=== PATIENT | female | born 1955 | race Caucasian/White ===

== ENCOUNTER 2017-05-08 09:50 | Emergency (ER) | payer OTHER ==
[2017-05-08 09:57] VITALS: RESP 16; TEMP 98.2
--- NOTE | 2017-05-08 10:23 | EDPHY ---
HPI/HX/ROS/PE/MDM Narrative: CHIEF COMPLAINT: Abdominal pain HPI: This patient is a 61-year-old female who presents to the Emergency Department complaining of an acute exacerbation of chronic intermittent right- upper-quadrant abdominal pain. She describes the pain as achy and waxing and waning with radiation to her mid right thoracic back. It is not exacerbated by eating. She denies any associated complaints; no nausea, vomiting, hemoptysis, or shortness of breath. She has a history of pyelonephritis but describes this pain as different in localization and quality. No history of cholecystitis or cholecystectomy. REVIEW OF SYSTEMS: Aside from elements discussed in the HPI, a comprehensive 10-point review of systems was reviewed and is negative. PMH: Thyroid disease (Synthroid) SOCIAL HISTORY: Adopted; limited familial history. Works as a software release manager. PHYSICAL EXAM: General:Patient is alert, in no acute distress. ENT:Eyes are normal to inspection. ENT inspection normal. Neck: Normal inspection. Full range of motion. Respiratory:No respiratory distress. Breath sounds normal bilaterally. Cardiovascular: Regular rate and rhythm. Strong peripheral pulses. Normal cap refill. Abdomen:The abdomen is nontender to palpation. There are no peritoneal signs. There are normal bowel sounds. Back: Normal to inspection. Mild RUQ tenderness. Skin: Normal color. No rash. Warm and dry. Extremities: Normal appearance. Full range of motion. Neuro: Oriented x3. Normal motor function. Normal sensory function. ED Course: 61-year-old female complains of ongoing intermittent RUQ abdominal pain with acute exacerbation over the past two days. She has no cardiac or respiratory complaints; no chest pain, diaphoresis, or hemoptysis. She has mild RUQ tenderness on exam but no additional findings. While she does not associate her pain with eating, it is suspicious for cholecystitis given waxing and waning nature as well as radiation to the mid-back. Will proceed with labs, including LFTs, and US of the abdomen. Chest x-ray reviewed by me and is negative for acute process. Labs reviewed. Troponin is negative. D-dimer is negative. EKG was ordered and interpreted by myself; reveals sinus tachycardia rate 112. Please see [facility] system for official reading. 1220: US of the abdomen is negative per Dr. Lloyd. 1245: Vitals obtained; the patient remains tachycardic with HR of 107. The patient's workup thus far has not provided an underlying explanation for her ongoing abdominal pain as well as her persistent tachycardia. I offered her admission for continued evaluation; however, she declines this. She will be discharged home at this time. She understands that she should call tomorrow for TSH values and follow-up without fail with her PCP in the next 1-2 days. She is given strict return precautions prior to discharge. MDM: This patient presents with isolated pain to her RUQ abdomen. We performed an extensive workup including negative CXR, negative LFTs and lipase, and negative US of the RUQ, so I think PNA, cholecysitis, cholelithiasis, hepatitis and pancreatitis are all unlikely. Interestingly, the patient arrived mildly tachycardic and remained so over the course of her ED stay. She is afebrile and ECG shows sinus tach with no evidence of ischemia. The finding also prompted troponin and d-dimer, which are thanfully negative. Given history of synthroid use and lack of other clear etiology of tachycardia, I think it is possible that patient may be on too high of a dose of synthroid. I have sent a TSH but patient understands she needs to follow-up on this test with her PCP. We discussed strict return precautions. - Data Points Imaging Results: Imaging Impressions Abdomen Ultrasound 05/08/17 10:40 Impression: Normal. No cholelithiasis, biliary dilation, hydronephrosis or free fluid. Comment: A message was left for Dr. Choudhury at the ER desk regarding the negative results at 12:20 PM. Chest X-Ray 05/08/17 10:40 Impression: Clear lungs. No acute process. Laboratory Results: Laboratory Results 05/08/17 10:07 05/08/17 10:40 05/08/17 05/08/17 05/08/17 10:40 10:40 10:40 WBC RBC Hgb Hct MCV MCH MCHC RDW Plt Count MPV Neut % (Auto) Lymph % (Auto) [place] % (Auto) Eos % (Auto) Baso % (Auto) Nucleat RBC Rel Count Absolute Neuts (auto) Absolute Lymphs (auto) Absolute Monos (auto) Absolute Eos (auto) Absolute Basos (auto) Absolute Nucleated RBC Immature Gran % Immature Gran # D-Dimer 0.32 ug/mLFEU ug/mLFEU (0.00-0.50) Sodium Potassium Chloride Carbon Dioxide Anion Gap BUN Creatinine Estimated GFR Glucose Calcium Total Bilirubin Conjugated Bilirubin Unconjugated Bilirubin AST ALT Alkaline Phosphatase Troponin I < 0.012 ng/mL ng/mL (0-0.034) Total Protein Albumin Lipase TSH Pending 05/08/17 05/08/17 10:40 10:07 WBC 4.21 10^3/uL 10^3/uL (3.80-9.50) RBC 5.03 10^6/uL 10^6/uL (4.18-5.33) Hgb 15.6 g/dL g/dL (12.6-16.3) Hct 44.9 % % (38.0-47.0) MCV 89.3 fL fL (81.5-99.8) MCH 31.0 pg pg (27.9-34.1) MCHC 34.7 g/dL g/dL (32.4-36.7) RDW 14.2 % % (11.5-15.2) Plt Count 242 10^3/uL 10^3/uL (150-400) MPV 10.8 fL fL (8.7-11.7) Neut % (Auto) 59.7 % % (39.3-74.2) Lymph % (Auto) 31.1 % % (15.0-45.0) [place] % (Auto) 7.8 % % (4.5-13.0) Eos % (Auto) 0.7 % % (0.6-7.6) Baso % (Auto) 0.5 % % (0.3-1.7) Nucleat RBC Rel Count 0.0 % % (0.0-0.2) Absolute Neuts (auto) 2.51 10^3/uL 10^3/uL (1.70-6.50) Absolute Lymphs (auto) 1.31 10^3/uL 10^3/uL (1.00-3.00) Absolute Monos (auto) 0.33 10^3/uL 10^3/uL (0.30-0.80) Absolute Eos (auto) 0.03 10^3/uL 10^3/uL (0.03-0.40) Absolute Basos (auto) 0.02 10^3/uL 10^3/uL (0.02-0.10) Absolute Nucleated RBC 0.00 10^3/uL 10^3/uL (0-0.01) Immature Gran % 0.2 % % (0.0-1.1) Immature Gran # 0.01 10^3/uL 10^3/uL (0.00-0.10) D-Dimer Sodium 144 mEq/L mEq/L (134-144) Potassium 4.4 mEq/L mEq/L (3.5-5.2) Chloride 105 mEq/L mEq/L (97-110) Carbon Dioxide 23 mEq/l mEq/l (22-31) Anion Gap 16 mEq/L mEq/L (8-16) BUN 20 mg/dL mg/dL (7-23) Creatinine 0.7 mg/dL mg/dL (0.6-1.0) Estimated GFR > 60 Glucose 105 mg/dL H mg/dL (70-100) Calcium 10.5 mg/dL H mg/dL (8.5-10.4) Total Bilirubin 0.7 mg/dL mg/dL (0.1-1.4) Conjugated Bilirubin 0.2 mg/dL mg/dL (0.0-0.5) Unconjugated Bilirubin 0.5 mg/dL mg/dL (0.0-1.1) AST 38 IU/L IU/L (14-46) ALT 40 IU/L IU/L (9-52) Alkaline Phosphatase 69 IU/L IU/L (38-126) Troponin I Total Protein 8.4 g/dL H g/dL (6.3-8.2) Albumin 5.1 g/dL H g/dL (3.5-5.0) Lipase 86.0 IU/L IU/L (23-300) TSH General Time Seen by Provider: 05/08/17 10:17 Initial Vital Signs: Initial Vital Signs Temperature (C) 36.8 C 05/08/17 09:53 Heart Rate 116 H 05/08/17 09:53 Respiratory Rate 16 05/08/17 09:53 Blood Pressure 135/99 H 05/08/17 09:53 O2 Sat (%) 95 05/08/17 09:53 O2 Delivery Mode Room Air Allergies/Adverse Reactions: Sulfa (Sulfonamide Antibiotics) [Sulfa(Sulfonamide Antibiotics)] Allergy (Severe , Verified 07/07/12 03:30) amoxicillin [Amoxicillin] Allergy (Verified 07/07/12 03:30) Penicillins Allergy (Verified 07/07/12 03:30) Home Medications: Medication Instructions Recorded Levothyroxine [Synthroid 75 mcg 75 mcg PO DAILY06 04/19/12 (RX)] Departure - Departure Disposition: Home, Routine, Self-Care Clinical Impression: Tachycardia Abdominal pain Qualifiers: Abdominal location: right upper quadrant Qualified Code(s): R10.11 - Right upper quadrant pain Condition: Good Instructions: Abdominal Pain (ED), Tachycardia (ED) Additional Instructions: 1. Follow-up with your primary care provider within the next 48 hours without fail. 2. Return to the Emergency Department immediately with severe pain, heart palpitations, chest pain, shortness of breath, uncontrollable nausea or vomiting , or for others serious concerns. Referrals: Catherine Delcid MD [Primary Care Provider] - As per Instructions Report Scribed for: Charles Choudhury Report Scribed by: Fatou Perdomo Date of Report: 05/08/17 Time of Report: 10:23 Physician Review and Approval Statement: Portions of this note were transcribed by an ED scribe. I personally performed the history, physical exam, and medical decision making; and confirm the accuracy of the information in the transcribed note.
[2017-05-08 10:45] LABS: % IMMATURE GRANULYOCYTES 0.2 % (0.0-1.1); ABSOLUTE IMMATURE GRANULOCYTES 0.01 10^3/uL (0.00-0.10); ADD DIFF? NO; ADD MORPH? NO; ADD SCAN? NO; ATYPICAL LYMPHOCYTE FLAG 10 (0-99); FRAGMENT RBC FLAG 0 (0-99); HEMATOCRIT 44.9 % (38.0-47.0); HEMOGLOBIN 15.6 g/dL (12.6-16.3); LEFT SHIFT FLG 0 (0-99); LIPEMIA HEMOLYSIS FLAG 90 (0-99); MEAN CELL HEMOGLOBIN CONCENTR. 34.7 g/dL (32.4-36.7); MEAN CELL VOLUME 89.3 fL (81.5-99.8); MEAN PLATELET VOLUME 10.8 fL (8.7-11.7); PLATELET CLUMPS FLAG 0 (0-99); PLATELET COUNT 242 10^3/uL (150-400); RED BLOOD CELL COUNT 5.03 10^6/uL (4.18-5.33); RED CELL DISTRIBUTION WIDTH 14.2 % (11.5-15.2)
[2017-05-08 10:58] LABS: ALANINE AMINOTRANSFERASE 40 IU/L (9-52); ALBUMIN 5.1 g/dL (3.5-5.0); ALKALINE PHOSPHATASE 69 IU/L (38-126); ANION GAP 16 mEq/L (8-16); ASPARTATE AMINOTRANSFERASE 38 IU/L (14-46); BILIRUBIN,TOTAL 0.7 mg/dL (0.1-1.4); BILIRUBIN-CONJUGATED 0.2 mg/dL (0.0-0.5); BILIRUBIN-UNCONJUGATED 0.5 mg/dL (0.0-1.1); CALCIUM 10.5 mg/dL (8.5-10.4); CARBON DIOXIDE 23 mEq/l (22-31); CHLORIDE 105 mEq/L (97-110); CREATININE 0.7 mg/dL (0.6-1.0); GLOMERULAR FILTRATION RATE > 60; GLUCOSE 105 mg/dL (70-100); POTASSIUM 4.4 mEq/L (3.5-5.2); SODIUM 144 mEq/L (134-144); TOTAL PROTEIN 8.4 g/dL (6.3-8.2)
[2017-05-08 12:45] VITALS: BP 154/100; PULSE 107; O2SAT 96
--- NOTE | 2017-05-09 08:58 | CPEKG ---
Heart Rate: 112 RR Interval: 536 P-R Interval: 144 QRSD Interval: 72 QT Interval: 340 QTC Interval: 464 P [place]: 69 QRS [place]: 41 T Wave [place]: -6 EKG Severity - BORDERLINE ECG - EKG Impression: SINUS TACHYCARDIA EKG Impression: BORDERLINE T ABNORMALITIES, INFERIOR LEADS Electronically Signed By: Alia Yi 11-May-2017 00:52:16
== END 2017-05-08 13:43 | disposition home or self-care (01) ==
DX: R10.11 Right upper quadrant pain (principal); R00.0 Tachycardia, unspecified

== ENCOUNTER → 2017-05-11 | Outpatient (CLI) | payer OTHER | LOC: FIMAGING 07:58 | PROVIDERS: ATTEND Family Medicine | PROC: CF1CYZZ Planar Nuclear Medicine Imaging of Hepatobiliary System, All using Other Radionuclide (ICD-10-PCS; principal; 2017-05-11) | DX: R10.11 Right upper quadrant pain (principal) | CPT/HCPCS: 78227; A9537 ==

== ENCOUNTER → 2018-10-06 | Outpatient (CLI) | payer OTHER | LOC: FIMAGING 12:45 | PROVIDERS: ATTEND Family Medicine | DX: Z12.31 Encounter for screening mammogram for malignant neoplasm of breast (principal); Z13.820 Encounter for screening for osteoporosis; M85.89 Other specified disorders of bone density and structure, multiple sites ==

== ENCOUNTER → 2019-04-26 | Outpatient (CLI) | payer OTHER | LOC: FIMAGING 09:33 ==